=== PATIENT | male | born 1990 | race Caucasian/White ===

== ENCOUNTER 2017-02-20 17:34 | Emergency (ER) | payer SELFPAY ==
[~2017-02-20] VITALS: Ht 160 cm; Wt 65.0 kg
[2017-02-20] MEDS ORDERED: LORazepam 2 MG TABLET PO ONE (18:00)
[2017-02-20 18:11] LABS: BASOPHILS # (AUTO) 0.01 K/uL (0.00-0.20); BASOPHILS % (AUTO) 0.1 % (0.0-2.0); EOSINOPHILS # (AUTO) 0.26 K/uL (0.00-0.70); EOSINOPHILS % (AUTO) 2.67 % (1.0-6.0); HEMATOCRIT 48.2 % (41-53); HEMOGLOBIN 15.5 g/dL (13.5-17.5); LYMPHOCYTES % (AUTO) 19.9 % (22.0-44.0); MEAN CORPUSCULAR HEMOGLOBIN 28.6 pg (26.0-34.0); MEAN CORPUSCULAR HGB CONC 32.2 G/dL (31.0-37.0); MEAN CORPUSCULAR VOLUME 89 fL (80-100); MONOCYTES % (AUTO) 9.9 % (2.0-9.0); NEUTROPHILS # (AUTO) 6.6 K/uL (1.8-7.7); NEUTROPHILS % (AUTO) 67.3 % (40.0-70.0); PLATELET COUNT (AUTO) 181 K/uL (150-450); RED BLOOD CELL COUNT(AUTO) 5.43 MIL/uL (4.50-5.90); RED CELL DISTRIBUTION WIDTH 12.9 % (11.5-14.5)
[2017-02-20 18:26] LABS: ANION GAP 9 mmol/L (8-16); CARBON DIOXIDE 29 mmol/L (22-29); CHLORIDE 107 mmol/L (98-107); CREATININE 1.53 mg/dL (0.60-1.30); GLOMERULAR FILTR. RATE CALC 55 mL/min (>60); GLUCOSE,RANDOM 103 mg/dL (70-110); POTASSIUM 5.5 mmol/L (3.5-5.1); SODIUM SERUM 145 mmol/L (136-145); UREA NITROGEN, BLOOD 18 mg/dL (7-18)
[2017-02-20 18:32] LABS: ALANINE AMINOTRANSFERASE 67 U/L (12-78); ALBUMIN 4.5 g/dL (3.4-5.0); ALKALINE PHOSPHATASE 44 U/L (46-116); ASPARTATE AMINOTRANSFERASE 64 U/L (15-37); BILIRUBIN,TOTAL 0.6 mg/dL (0.1-1.0); TOTAL PROTEIN, SERUM 7.9 g/dL (6.4-8.2)
[2017-02-20 18:38] LABS: AMPHET/METH SCREEN,URINE NEGATIVE (NEGATIVE); BARBITURATE SCREEN, URINE NEGATIVE (NEGATIVE); BENZODIAZEPINES SCREEN,URINE NEGATIVE (NEGATIVE); CANNABINOID SCREEN,URINE NEGATIVE (NEGATIVE); COCAINE SCREEN,URINE NEGATIVE (NEGATIVE); METHADONE SCREEN, URINE NEGATIVE (NEGATIVE); OPIATE SCREEN,URINE NEGATIVE (NEGATIVE)
[2017-02-20 18:41] LABS: PHENCYCLIDINE SCREEN,URINE NEGATIVE (NEGATIVE)
[2017-02-20] MEDS ORDERED: SODIUM CHLORIDE 0.9% 1,000 ML IV ONE (19:15)
[2017-02-20 20:30] VITALS: BP 103/82
== END 2017-02-20 20:37 | disposition home or self-care (01) ==
LOC: EMS 17:36
DX: E86.0 Dehydration (principal); F31.9 Bipolar disorder, unspecified
CPT/HCPCS: 36415; 80053; 80307; 84132; 85025; 93005; 96360; 99285; G0480; J7030

== ENCOUNTER 2017-02-21 18:31 | Inpatient (IN) | payer SELFPAY ==
[~2017-02-21] VITALS: Ht 160 cm; Wt 57.0 kg
[2017-02-21] MEDS ORDERED: LORazepam 2 MG/ML VIAL IM ONE (19:15)
[2017-02-21] MEDS ORDERED: HALOPERIDOL LACTATE 5 MG/ML VIAL IM ONE (19:15)
[2017-02-21 20:27] LABS: BASOPHILS % (AUTO) 0.2 % (0.0-2.0); EOSINOPHILS % (AUTO) 2.4 % (1.0-6.0); HEMATOCRIT 39.8 % (41-53); HEMOGLOBIN 13.3 g/dL (13.5-17.5); LYMPHOCYTES # (AUTO) 1.5 K/uL (1.0-4.8); LYMPHOCYTES % (AUTO) 23.7 % (22.0-44.0); MEAN CORPUSCULAR HEMOGLOBIN 29.4 pg (26.0-34.0); MEAN CORPUSCULAR HGB CONC 33.4 G/dL (31.0-37.0); MEAN CORPUSCULAR VOLUME 88 fL (80-100); MONOCYTES # (AUTO) 0.5 K/uL (0.1-1.0); NEUTROPHILS # (AUTO) 4.3 K/uL (1.8-7.7); NEUTROPHILS % (AUTO) 65.7 % (40.0-70.0); PLATELET COUNT (AUTO) 161 K/uL (150-450); RED BLOOD CELL COUNT(AUTO) 4.54 MIL/uL (4.50-5.90); RED CELL DISTRIBUTION WIDTH 12.5 % (11.5-14.5)
[2017-02-21 20:31] LABS: ANION GAP 8 mmol/L (8-16); CARBON DIOXIDE 28 mmol/L (22-29); CHLORIDE 104 mmol/L (98-107); CREATININE 1.12 mg/dL (0.60-1.30); GLOMERULAR FILTR. RATE CALC > 60 mL/min (>60); GLUCOSE,RANDOM 122 mg/dL (70-110); POTASSIUM 3.5 mmol/L (3.5-5.1); SODIUM SERUM 140 mmol/L (136-145); UREA NITROGEN, BLOOD 13 mg/dL (7-18)
[2017-02-21 20:38] LABS: ALANINE AMINOTRANSFERASE 51 U/L (12-78); ALBUMIN 3.7 g/dL (3.4-5.0); ALKALINE PHOSPHATASE 34 U/L (46-116); ASPARTATE AMINOTRANSFERASE 43 U/L (15-37); BILIRUBIN,TOTAL 0.6 mg/dL (0.1-1.0); TOTAL PROTEIN, SERUM 6.8 g/dL (6.4-8.2)
[2017-02-21 21:38] VITALS: BP 105/63
[2017-02-21 22:07] VITALS: BP 105/63
[2017-02-21] MEDS ORDERED: INFLUENZA VIRUS VACCINE QVS 2017-18 (3YR+)/PF 60 MCG/0.5 ML SYRINGE IM ONE (22:30)
[2017-02-21] MEDS ORDERED: PNEUMOCOCCAL VACCINE POLYVALENT 0.5 ML VIAL [PPSV23] IM ONE (22:30)
[2017-02-22 06:04] VITALS: BP 112/65
[2017-02-22 09:01] VITALS: BP 123/61
[2017-02-22] MEDS ORDERED: BENZOCAINE/MENTHOL LOZENGE MM PRN (09:15)
[2017-02-22] MEDS ORDERED: PETROLATUM,WHITE 71 GM JELLY TP PRN (09:15)
[2017-02-22] MEDS ORDERED: LOPERAMIDE HCL 2 MG CAPSULE PO PRN (09:15)
[2017-02-22] MEDS ORDERED: CloNIDine HCL 0.1 MG TABLET PO PRN (09:15)
[2017-02-22] MEDS ORDERED: ALBUTEROL SULFATE HFA 90 MCG/PUFF 8 GM INHALER IH PRN (09:15)
[2017-02-22] MEDS ORDERED: BACITRACIN 28.4 GM OINTMENT TP PRN (09:15)
[2017-02-22] MEDS ORDERED: MAGNESIUM HYDROXIDE SUSPENSION 30 ML UDCUP PO PRN (09:15)
[2017-02-22] MEDS ORDERED: ACETAMINOPHEN 325 MG TABLET PO PRN (09:15)
[2017-02-22] MEDS ORDERED: ONDANSETRON HCL 4 MG TABLET PO PRN (09:15)
[2017-02-22] MEDS ORDERED: IBUPROFEN 600 MG TABLET PO PRN (09:15)
[2017-02-22] MEDS ORDERED: MAG HYDROX/AL HYDROX/SIMETH ES 30 ML SUSPENSION UDCUP PO PRN (09:15)
[2017-02-22 12:29] VITALS: BP 133/72
[2017-02-22 16:05] VITALS: BP 129/78
[2017-02-22] MEDS: RisperiDONE 1 MG TABLET PO SCH (16:14)
[2017-02-22] MEDS: LORazepam 2 MG TABLET PO PRN (19:29)
[2017-02-23 01:01] VITALS: BP 119/69
[2017-02-23 08:31] VITALS: BP 121/83
[2017-02-23] MEDS: LORazepam 2 MG TABLET PO PRN ×2 (08:35→15:59)
[2017-02-23] MEDS: RisperiDONE 1 MG TABLET PO SCH ×2 (08:35→16:03)
[2017-02-23] MEDS: HALOPERIDOL 5 MG TABLET PO PRN (15:59)
[2017-02-23 16:29] VITALS: BP 130/85
[2017-02-24 00:58] VITALS: BP 113/92
[2017-02-24] MEDS: RisperiDONE 1 MG TABLET PO SCH ×2 (07:56→16:18)
[2017-02-24 08:10] VITALS: BP 131/82
[2017-02-24] MEDS: LORazepam 2 MG TABLET PO PRN ×2 (09:01→16:18)
[2017-02-24 16:03] VITALS: BP 125/76
[2017-02-24] MEDS: HALOPERIDOL 5 MG TABLET PO PRN (16:18)
[2017-02-25 01:15] VITALS: BP 125/91
[2017-02-25] MEDS: RisperiDONE 1 MG TABLET PO SCH (08:13)
[2017-02-25] MEDS: LORazepam 2 MG TABLET PO PRN ×2 (08:13→14:15)
[2017-02-25 09:29] VITALS: BP 134/78
[2017-02-25] MEDS: HALOPERIDOL 5 MG TABLET PO PRN (14:15)
[2017-02-25] MEDS: RisperiDONE 3 MG TABLET PO SCH (16:06)
[2017-02-25 16:31] VITALS: BP 119/74
[2017-02-26 01:08] VITALS: BP 120/88
[2017-02-26] MEDS: RisperiDONE 3 MG TABLET PO SCH ×2 (08:09→16:15)
[2017-02-26 08:21] VITALS: BP 131/79
[2017-02-26] MEDS: HALOPERIDOL 5 MG TABLET PO PRN (16:15)
[2017-02-26] MEDS: LORazepam 2 MG TABLET PO PRN (16:15)
[2017-02-26 16:26] VITALS: BP 126/79
[2017-02-27 05:36] VITALS: BP 116/79
[2017-02-27] MEDS: RisperiDONE 3 MG TABLET PO SCH ×2 (08:08→16:07)
[2017-02-27 08:31] VITALS: BP 127/79
[2017-02-27 16:07] VITALS: BP 124/75
[2017-02-28 00:01] VITALS: BP 118/73
[2017-02-28 08:10] VITALS: BP 138/88
[2017-02-28] MEDS: RisperiDONE 3 MG TABLET PO SCH (08:37)
[2017-02-28] MEDS ORDERED: RISP3TAB44 PO (12:11)
[2017-02-28] MEDS ORDERED: ALBU8HFA IH (12:13)
== END 2017-02-28 13:00 | disposition home or self-care (01) | DRG 885 ==
LOC: EMS 18:36 → B2S 19:54
PROVIDERS: ADMIT Psychiatry & Neurology Psychiatry; ATTEND Psychiatry & Neurology Psychiatry
DX: F20.0 Paranoid schizophrenia (principal); R45.851 Suicidal ideations; S11.91XA Laceration without foreign body of unspecified part of neck, initial encounter; Z28.21 Immunization not carried out because of patient refusal; F31.9 Bipolar disorder, unspecified; K59.00 Constipation, unspecified; X58.XXXA Exposure to other specified factors, initial encounter; Y93.89 Activity, other specified; Y92.89 Other specified places as the place of occurrence of the external cause; Y99.8 Other external cause status; Z79.899 Other long term (current) drug therapy; R73.9 Hyperglycemia, unspecified; R74.0 Nonspecific elevation of levels of transaminase and lactic acid dehydrogenase [LDH]; Z56.0 Unemployment, unspecified; D64.9 Anemia, unspecified
CPT/HCPCS: 96372; 99285; G0480; J1630; J2060